=== PATIENT | male | born 1975 | race Caucasian/White ===

== ENCOUNTER 2016-11-14 21:09 | Emergency (ER) | payer OTHER ==
--- NOTE | ~2016-11-14 | EKG ---
PATIENT: REJI COLLAZO UNIT #: [id number] Ventricular Rate: 107 BPM Atrial Rate: 107 BPM P-R Interval: 132 ms QRS Duration: 94 ms Q-T Interval: 324 ms QTC Calculation(Bezet): 432 ms P Warren: 35 degrees Calculated R Warren: -5 degrees Calculated T Warren: 51 degrees Diagnosis Line: Sinus tachycardia Diagnosis Line: Inferior infarct , age undetermined Diagnosis Line: Abnormal ECG Diagnosis Line: No previous ECGs available Diagnosis Line: Confirmed by CAROLINA YODER MD ([id number]) on Diagnosis Line: 11/17/2016 3:40:33 PM INTERPRETING MD: PARESH HEREDIA
[~2016-11-14 21:09] MED LIST: AMARYL PO; ASPIRIN325 M1 PO; BYSTOLIC10 MG PO; FLAGYL PO; GLUCOPHAGE500 MG PO; GLYBURIDE PO; HYDROCHLOROTH12.5 MG PO; ONGLYZA5 MG PO; PHENERGAN PO
[2016-11-14] MEDS ORDERED: AZOR 10-20 MG1 EACH (21:17)
[2016-11-14] MEDS ORDERED: BYDUREON P2 MG/0.65 (21:18)
[2016-11-14] MEDS ORDERED: COREG12.5 MG (21:18)
[2016-11-14] MEDS ORDERED: HYDROCODON-ACE1 EAC5 (21:18)
[2016-11-14] MEDS ORDERED: LIPITOR (21:18)
[2016-11-14] MEDS ORDERED: APIDRA (NF100 UNITS/ (21:18)
[2016-11-14] MEDS ORDERED: INVOKANA300 MG (21:19)
[2016-11-14] MEDS ORDERED: LOSARTAN POTAS100 MG (21:19)
[2016-11-14] MEDS ORDERED: IBUPROFEN800 MG (21:19)
[2016-11-14] MEDS ORDERED: PHENTERMINE HCL15 MG (21:19)
[2016-11-14] MEDS ORDERED: TRESIBA FL200 UNIT/1 (21:20)
[2016-11-14] MEDS ORDERED: TOPIRAMATE100 MG (21:20)
[2016-11-14 22:07] LABS: BASOPHIL% 0.2 % (0-2.5); EOSINOPHIL% 0.4 % (0.0-7.0); HEMATOCRIT 42.9 % (38.0-50.0); HEMOGLOBIN 14.8 gm/dL (13.0-16.0); LYMPHOCYTE# 0.9 X10e3 (1.0-3.5); LYMPHOCYTE% 11.7 % (17.0-45.0); MEAN CELL VOLUME 88.4 FL (83-96); MEAN CORPUSCULAR HEMOGLOBIN 30.4 PG (28-34); MEAN CORPUSCULAR HGB CONC 34.4 g/dL (30-36); MEAN PLATELET VOLUME 7.8 FL (6.5-11.5); MONOCYTE# 0.9 X10e3 (0-1.0); MONOCYTE% 11.2 % (3.0-12.0); NEUTROPHIL# 5.9 X10e3 (1.5-7.1); NEUTROPHIL% 76.5 % (40-75); PLATELET COUNT 189 X10e3 (140-420); RED BLOOD COUNT 4.85 X10e (3.90-5.60); RED CELL DISTRIBUTION WIDTH 13.5 % (11.0-15.5); WHITE BLOOD COUNT 7.7 X10e3 (4.0-10.5)
[2016-11-14 22:10] LABS: DIFF IND NO
[2016-11-14 22:24] LABS: POC - CKMB <1.0 ng/mL (0.0-7.9)
[2016-11-14 22:25] LABS: ALBUMIN SERUM 3.5 g/dL (3.5-5.0); BILIRUBIN, DIRECT 0.3 mg/dL (0.0-0.2); BILIRUBIN,INDIRECT 1.8 mg/dL (0.0-0.9); BILIRUBIN,TOTAL 2.1 mg/dL (0.2-2.0); CALCIUM SERUM 8.9 mg/dL (8.4-10.2); GLOM FILT RATE Estimated 93.7 mL/min (>60); PROTEIN TOTAL SERUM 7.1 g/dL (6.0-8.3)
[2016-11-14 22:25] LABS: POC - TROPONIN <0.05 ng/mL (<=0.05)
[2016-11-14 22:27] LABS: POTASSIUM 3.3 mmol/L (3.5-5.1)
== END 2016-11-14 23:15 | disposition home or self-care (01) ==
LOC: SED 21:09
PROVIDERS: Emergency Medicine
DX: J02.0 Streptococcal pharyngitis (principal); R11.10 Vomiting, unspecified; R19.7 Diarrhea, unspecified; M79.602 Pain in left arm; I10 Essential (primary) hypertension; E11.9 Type 2 diabetes mellitus without complications; Z79.4 Long term (current) use of insulin
CPT/HCPCS: 36415; 80048; 80076; 82553; 82947; 83690; 84484; 85025; 87880; 93005; 96361; 96372; 96374; 96375; 99284; J0561; J2405